=== PATIENT | male | born 1965 | race Caucasian/White ===

== ENCOUNTER 2016-12-11 05:39 | Day surgery (SDC) | payer BC ==
[2016-12-11] MEDS ORDERED: Lactated Ringers 1,000 ML IV SCH (06:30)
[2016-12-11] MEDS ORDERED: DIPRIVAN 200 MG/20 ML IV ONE ×2 (08:00)
[2016-12-11] MEDS ORDERED: SUBLIMAZE 100 MCG/2 ML IV ONE (08:00)
[2016-12-11] MEDS ORDERED: Versed 2 MG/2 ML Injection IV ONE (08:00)
--- NOTE | 2016-12-11 08:10 | OP ---
SURGERY DATE/TIME: 12/11/2016704 PREOPERATIVE DIAGNOSIS: Screening colonoscopy. POSTOPERATIVE DIAGNOSIS: Normal colon. PROCEDURE: Colonoscopy. SURGEON: Michael Michael M.D. ANESTHESIA: MAC. ESTIMATED BLOOD LOSS: None. SPECIMENS: None. DESCRIPTION OF PROCEDURE: After informed written consent was obtained, the patient was taken to the endoscopy suite. He underwent monitored anesthesia and a digital rectal exam showed normal sphincter tone and no internal lesions. The scope was inserted into the rectum and sequentially the entire colonic mucosa was traversed. The level of cecum was reached and verified with direct visualization of the ileocecal valve. Upon withdrawal careful mucosal inspection revealed no gross focal mucosal abnormalities. Prep was noted to be fair. Prior to withdrawal retroflexion was performed and was within normal limits with no internal lesions. The scope was removed and the patient was transferred to the recovery room in excellent condition.
[2016-12-11 08:39] VITALS: O2SAT 96
[2016-12-11 08:43] VITALS: BP 159/88; PULSE 60
== END 2016-12-11 08:40 | disposition home or self-care (01) ==
LOC: SDC 05:39
PROVIDERS: ATTEND Family Medicine
PROC: 0DJD8ZZ Inspection of Lower Intestinal Tract, Via Natural or Artificial Opening Endoscopic (ICD-10-PCS; principal; 2016-12-11)
DX: Z12.11 Encounter for screening for malignant neoplasm of colon (principal)
CPT/HCPCS: J2250; J2704; J3010